=== PATIENT | female | born 1975 | race Caucasian/White ===

== ENCOUNTER 2017-04-16 02:28 | Emergency (ER) | payer MEDICAID ==
[~2017-04-16] VITALS: Ht 162.6 cm; Wt 62.9 kg
[~2017-04-16 02:28] MED LIST: CYCL-259 PO; METH4TAB2 PO; OXYC-307 PO; OXYC1TAB9 PO
[2017-04-16] MEDS ORDERED: METHOCARBAMOL 750 MG TABLET ONE (03:48)
[2017-04-16 03:51] VITALS: BP 139/90
[2017-04-16] MEDS ORDERED: METHOCARBAMOL 750 MG TABLET PO ONE (04:00)
== END 2017-04-16 04:06 | disposition home or self-care (01) ==
LOC: ED 04:00
DX: H66.92 Otitis media, unspecified, left ear (principal); M54.12 Radiculopathy, cervical region
CPT/HCPCS: 99283

== ENCOUNTER 2019-08-22 17:25 | Emergency (ER) | payer MEDICAID ==
[~2019-08-22] VITALS: Ht 162.6 cm; Wt 71.0 kg
[~2019-08-22 17:25] MED LIST changes: +OXYC-432 PO; -OXYC1TAB9 PO
--- NOTE | 2019-08-22 18:05 | NUR ---
LMP 07/27/19 WITH RETURN IN PERIOD LIKE BLEEDING 08/05/19 WHICH HAS PERSISTED UNTIL TODAY BLEEDING SATURATING 1-2 NORMAL DUTY PADS/24 HOURS GOOD COLOR, VSS DESCRIBED CRAMPING LIKE PAIN TO PELVIS FRONT AND BACK
--- NOTE | 2019-08-22 18:15 | NUR ---
LAB AT BEDSIDE PATIENT UPDATED WITH POC
[2019-08-22] MEDS ORDERED: HYDROcodone/APAP 5/325 TABLET PO ONE (18:30)
[2019-08-22 18:31] LABS: BASOPHILS # (AUTO) 0.11 x10^3/uL (0-0.1); BASOPHILS % (AUTO) 1 % (0-1); EOSINOPHILS # (AUTO) 0.15 x10^3/uL (0-0.4); EOSINOPHILS % (AUTO) 2 % (1-7); LYMPHOCYTES # (AUTO) 2.78 x10^3/uL (1-3.4); LYMPHOCYTES % (AUTO) 29 % (22-44); MD NO; MEAN CORPUSCULAR HEMOGLOBIN 31.5 pg (27.0-34.8); MEAN CORPUSCULAR HGB CONC 34.1 g/dL (32.4-35.8); MEAN CORPUSCULAR VOLUME 92.5 fL (80-100); MEAN PLATELET VOLUME 8.3 fL (7.4-10.4); MONOCYTES # (AUTO) 0.52 x10^3/uL (0.2-0.8); MONOCYTES % (AUTO) 5 % (2-9); NEUTROPHILS # (AUTO) 6.17 x10^3/uL (1.8-6.8); NEUTROPHILS % (AUTO) 63 % (42-75); PLATELET COUNT 297 x10^3/uL (130-400); RED BLOOD COUNT 4.66 x10^6/uL (3.82-5.3); RED CELL DISTRIBUTION WIDTH 13.6 % (9.6-15.2)
[2019-08-22] MEDS ORDERED: HYDROcodone/APAP 5/325 TABLET ONE (18:31)
--- NOTE | 2019-08-22 18:33 | NUR ---
MEDICATED PER EMAR FOR PELVIC CRAMPING AT 12/30
[2019-08-22 18:42] LABS: ALANINE AMINOTRANSFERASE 18 U/L (12-78); ALBUMIN 3.3 g/dL (3.4-5.0); ANION GAP 9 mmol/L (5-15); CHLORIDE 106 mmol/L (98-107); CREATININE 0.81 mg/dL (0.55-1.02)
[2019-08-22 18:47] LABS: ALKALINE PHOSPHATASE 102 U/L (45-117); BILIRUBIN,TOTAL 0.4 mg/dL (0.2-1.0); TOTAL PROTEIN 6.9 g/dL (6.4-8.2)
--- NOTE | 2019-08-22 18:51 | NUR ---
PT BACK FROM US AT THIS TIME.
[2019-08-22 18:55] VITALS: BP 119/70
--- NOTE | 2019-08-22 19:25 | NUR ---
WITH REASSESSMENT PATIENT REPORT PELVIC CRAMPING IMPROVED TO 4/10 PATIENT UP TO RESTROOM TO PROVIDE UA
== END 2019-08-22 19:36 | disposition home or self-care (01) ==
LOC: ED 19:32
DX: N92.4 Excessive bleeding in the premenopausal period (principal); D25.0 Submucous leiomyoma of uterus; N92.1 Excessive and frequent menstruation with irregular cycle; F17.200 Nicotine dependence, unspecified, uncomplicated; N93.8 Other specified abnormal uterine and vaginal bleeding
CPT/HCPCS: 36415; 76830; 80053; 84703; 85025; 99284

== ENCOUNTER 2019-12-10 18:03 | Emergency (ER) | payer MEDICAID, OTHER ==
[~2019-12-10] VITALS: Ht 162.6 cm; Wt 72.2 kg
[2019-12-10 18:06] VITALS: BP 144/98
--- NOTE | 2019-12-10 19:05 | NUR ---
Called for PIT by PA and pt not in lobby at this time
--- NOTE | 2019-12-10 19:26 | NUR ---
called in the lobby, no answer
--- NOTE | 2019-12-10 19:46 | NUR ---
3rd call. no answer. not in the lobby
== END 2019-12-10 19:47 | disposition left against medical advice (07) ==
LOC: ED 19:40
DX: M25.511 Pain in right shoulder (principal); Z53.21 Procedure and treatment not carried out due to patient leaving prior to being seen by health care provider

== ENCOUNTER 2020-04-26 02:41 | Emergency (ER) | payer MEDICAID ==
[~2020-04-26] VITALS: Ht 162.6 cm; Wt 75.0 kg
[~2020-04-26 02:41] MED LIST changes: -OXYC-432 PO; +OXYC1TAB18 PO
--- NOTE | 2020-04-26 03:00 | NUR ---
cc of right shoulder pain for a week with increasing pain today. pt denies trauma and states she has full range of motion but it is painful. hx of neck surgery 2 years ago. boyfriend at bedside
[2020-04-26] MEDS ORDERED: HYDROcodone/APAP 5/325 TABLET ONE (03:22)
--- NOTE | 2020-04-26 03:23 | NUR ---
pt in xray
[2020-04-26] MEDS ORDERED: HYDROcodone/APAP 5/325 TABLET PO ONE (03:30)
[2020-04-26 04:30] VITALS: BP 149/93
== END 2020-04-26 04:54 | disposition home or self-care (01) ==
LOC: ED 03:58
DX: M54.12 Radiculopathy, cervical region (principal); R94.8 Abnormal results of function studies of other organs and systems; F17.200 Nicotine dependence, unspecified, uncomplicated
CPT/HCPCS: 72125; 99284